=== PATIENT | male | born 1990 | race Caucasian/White ===

== ENCOUNTER 2022-10-08 09:57 | Emergency (ER) | payer OTHER, SELFPAY ==
--- NOTE | ~2022-10-08 | XR_ITS ---
EXAMINATION: XR ANKLE, LEFT CLINICAL INFORMATION: Pain and swelling COMPARISON: None TECHNIQUE: AP, lateral, and mortise views of the left ankle. FINDINGS: The ankle mortise and subtalar joints are normal. No fracture, dislocation or subluxation seen. A small retrocalcaneal and calculi heel enthesophytes. There is mild lateral malleolar soft tissue swelling. XR/XR ankle LT min 3V IMPRESSION: 1. Mild lateral malleolar soft tissue swelling. No visible acute fracture or dislocation seen. 2. Small retrocalcaneal and heel enthesophytes.
[2022-10-08 10:02] VITALS: BP 124/66; PULSE 83; RESP 16; TEMP 37.1; O2SAT 97; BMI 41.1
--- NOTE | 2022-10-08 11:17 | ED_ITS ---
HPI - Extremity Injury (Lower) General Chief Complaint: Extremity Injury, Lower Stated Complaint: L ankle inj Time Seen by Provider: 10/08/22 10:15 History of Present Illness HPI Narrative: Patient with family with the complaint of twisted his left ankle on the last step when he was coming down stairs, it hurts but he is able to walk on it and there is no other injury no numbness no weakness no tingling denies any laceration no head injury no neck pain or back Related Data Previous Rx's Medication Instructions Recorded ibuprofen 600 mg tablet 600 mg PO Q6H PRN pain #20 tabs 10/08/22 Allergies Allergy/AdvReac Type Severity Reaction Status Date / Time No Known Allergies Allergy Verified 10/08/22 10:04 [facility] Past Medical History Source: nursing notes reviewed Physical Exam Vital Signs: Vital Signs: Last Vital Signs Temp 98.8 F 10/08/22 10:02 Pulse 83 10/08/22 10:02 Resp 16 10/08/22 10:02 BP 124/66 10/08/22 10:02 Pulse Ox 97 10/08/22 10:02 O2 Del Method 10/08/22 10:02 BMI result Body Mass Index 41.1 General appearance comfortable no distress normocephalic atraumatic The neck is supple Respiratory no distress Extremities full range of motion x4 including left ankle Left ankle there is mild ecchymosis mild swelling and mild tenderness over the lateral malleolus, skin is intact and neurovascular intact distal He walks with a mild limp Skin no rash Neuro no focal deficits Course Course Course Narrative: X-ray of left ankle was negative for any bony injuries, patient was given an Aircast, did not need crutches and was discharged Discharge Plan Discharge Clinical Impression: Left ankle sprain Patient Disposition: Home, Self-Care Additional Instructions: X-ray did not show any broken bone Sprained ankle usually gets better on its own within 2 weeks If not improving or any problems follow with orthopedist Return any time any concerns Prescriptions: New ibuprofen 600 mg tablet 600 mg PO Q6H PRN (Reason: pain) Qty: 20 0RF Referrals: Alexander Venegas MD [Physician] - (Left ankle sprain)
== END 2022-10-08 11:38 | disposition home or self-care (01) ==
PROVIDERS: Emergency Provider Emergency Medicine; PCP Internal Medicine
DX: S93.402A Sprain of unspecified ligament of left ankle, initial encounter (principal); X50.1XXA Overexertion from prolonged static or awkward postures, initial encounter; Y93.9 Activity, unspecified; Y92.9 Unspecified place or not applicable; Y99.9 Unspecified external cause status
CPT/HCPCS: 73610; 99282; 99283